=== PATIENT | female | born 1965 | race Caucasian/White ===

== ENCOUNTER → 2017-09-24 10:45 | Outpatient (CLI) | payer MEDICAID, SELFPAY ==
[2017-09-24 13:37] LABS: Alanine Aminotransferase 17 U/L (12-78); Albumin Level 3.5 gm/dL (3.4-5.0); Albumin/Globulin Ratio 1.2 (1.1-1.8); Alkaline Phosphatase 67 U/L (46-116); Anion Gap 11.3 mEq/L (5-15); Aspartate Amino Transferase 12 U/L (15-37); Bilirubin,Total 0.2 mg/dL (0.2-1.0); Blood Urea Nitrogen 10 mg/dL (7-18); Calcium 9.1 mg/dL (8.5-10.1); Carbon Dioxide 27 mmol/L (21.0-32.0); Chloride 106 mmol/L (98-107); Creatinine,Serum 0.62 mg/dL (0.55-1.02); Estimated Glomerular Filt Rate 102 ml/min (>60); GFR (African American) 123 ML/MIN (>60); Globulin 2.9 gm/dl (1.3-3.2); Glucose 89 mg/dL (74-106); Potassium 4.3 mmoL/L (3.5-5.1); Sodium 140 mmol/L (136-145); Total Protein,Serum 6.4 gm/dL (6.4-8.2)
[2017-09-24 14:02] LABS: Basophils % 0.5 % (0.1-2.0); Eosinophils # 0.1 K/mm3 (0.0-0.4); Eosinophils % 1.9 % (0.1-12.0); Hematocrit 41.8 % (37.0-47.0); Hemoglobin 13.8 g/dL (12.2-16.2); Lymphocytes # 1.6 K/mm3 (0.7-4.5); Lymphocytes % 31.1 K/mm3 (10-50); Mean Corpuscular HGB Conc 33.1 g/dL (31.8-35.4); Mean Corpuscular Hemoglobin 30.5 pg (27.0-31.2); Mean Corpuscular Volume 92.2 fl (81-99); Monocytes # 0.3 K/mm3 (0.1-1.0); Monocytes % 5.4 % (1.7-9.3); Neutrophils # 3.2 K/mm3 (1.8-7.8); Neutrophils % 61.2 % (37.0-80.0); Platelet Count 224 K/mm3 (142-424); Red Blood Count 4.53 M/mm3 (4.20-5.40); Red Cell Distribution Width 12.5 % (11.5-17.5); White Blood Count 5.2 K/mm3 (4.8-10.8)
[2017-09-26 06:32] LABS: FSH 25.5 mIU/mL (.)
[2017-09-27 13:00] LABS: Estrogen 163 pg/mL (.)
== END ==
PROVIDERS: PCP Nurse Practitioner Family; Visit Provider Internal Medicine Hematology & Oncology
DX: C50.512 Malignant neoplasm of lower-outer quadrant of left female breast (principal); N95.1 Menopausal and female climacteric states; M25.512 Pain in left shoulder; M54.2 Cervicalgia
CPT/HCPCS: 36415; 80053; 82672; 83001; 85025

== ENCOUNTER 2020-11-21 15:00 | Outpatient (RCR) | payer OTHER, SELFPAY | END 2020-12-05 09:54 | disposition home or self-care (01) | LOC: PT.CARL 15:00 | PROVIDERS: PCP Nurse Practitioner Family; Visit Provider Nurse Practitioner Family | DX: M54.2 Cervicalgia; M25.511 Pain in right shoulder | CPT/HCPCS: 97110; 97140; 97163 ==

== ENCOUNTER → 2021-05-11 08:19 | Outpatient (CLI) | payer OTHER, SELFPAY ==
[2021-05-11] VITALS (9 sets, daily range): BP systolic 87–117; BP diastolic 42–65; PULSE 70–86; RESP 16–18; O2SAT 95–99
== END ==
PROVIDERS: PCP Nurse Practitioner Family; Visit Provider Nurse Practitioner Family
DX: U07.1 COVID-19 (principal); Z23 Encounter for immunization
CPT/HCPCS: 96365